=== PATIENT | female | born 1990 | race African-American/Black ===

== ENCOUNTER 2021-11-15 12:34 | Observation (INO) | payer OTHER, SELFPAY ==
--- NOTE | ~2021-11-15 | US_ITS ---
EXAMINATION: US OB limited DATE: 11/15/2021 14:43 INDICATION: Pelvic pressure. Third trimester. TECHNIQUE: Real-time transabdominal and transvaginal ultrasound of the pelvis was performed. COMPARISON: None. FINDINGS: There is a single fetus in vertex presentation. The placenta is fundal. heart rate is 159 beat s per minute (bpm). The amniotic fluid volume is subjectively normal. The cervical length is normal o n transvaginal images and measures 3.0 cm. IMPRESSION: 1. Single living fetus in vertex presentation. 2. Normal cervical length. Reviewed, dictated and finalized at location A. ZEL COOKER
[2021-11-15 12:50] VITALS: BP 110/73; PULSE 89; RESP 16; TEMP 37.3
--- NOTE | 2021-11-15 14:26 | OBADM ---
This patient, Keke Rivers, admitted to the OB room [facility] for observation. Patient/family oriented to hospital policies and general routines including ID bracelet, bed and alarms, visiting hours, pain management, procedures, bathroom and other care routines, personal items, smoking policy, room service/diet, and visiting hours. Patient/Family are encouraged to report perceived risks to care and to ask questions if they do not understand what they are told or what they should do.
[2021-11-15 14:28] VITALS: BMI 26.4
[2021-11-15 14:40] LABS: Add Urine Microscopic? YES; Appearance Urine Cloudy (Clear); Bacteria Urine Trace /hpf; Bilirubin Urine Negative (Negative); Blood Urine Negative (Negative); Color Urine Yellow (Yellow); Glucose Urine UA Negative (Negative); Ketones Urine 2+ mg/dL (Negative); Leukocyte Esterase Ur 3+ LEU/UL (NEGATIVE); Mucus Urine Few /lpf; Nitrate Urine Negative (Negative); Protein Urine Negative (Negative); Squamous Epithelial Cell Urine Many /hpf (Few); Urobilinogen Urine Negative mg/dL (<2.0)
[2021-11-15] MEDS: DEXTROSE 5%/0.9% SOD CHL 1,000 ML 999 ML IV CONT (16:04)
[2021-11-15 17:33] LABS: Influenza A QL RT-PCR Negative (Negative); Influenza B QL RT-PCR Negative (Negative); SARS-CoV-2 RNA PCR Positive
--- NOTE | 2021-11-17 07:41 | P.PNOB_ITS ---
OB - Triage/Final Diagnosis Visit Information Reason for evaluation: threatened labor and other (uti) Comments/Additional reasons for admission: I have assessed the risk for this patient, Keke Rivers, and determined that she would benefit from observation care. Evaluation Laboratory results: Laboratory Tests 11/15/21 11/15/21 14:08 14:13 Urine Color Yellow Urine Appearance Cloudy H Urine pH 6.0 Ur Specific [place] 1.020 Urine Protein Negative Urine Glucose (UA) Negative Urine Ketones 2+ H Ur Blood (Man) Negative Urine Nitrate Negative Urine Bilirubin Negative Urine Urobilinogen Negative Ur Leukocyte Esterase 3+ H Urine RBC 3-5 H Urine WBC 4-6 H Ur Squamous Epith Cells Many H Urine Bacteria Trace Urine Mucus Few H Influenza A (RT-PCR) Negative Influenza B (RT-PCR) Negative SARS-CoV-2 RNA (RT-PCR) Positive A
== END 2021-11-15 18:17 | disposition home or self-care (01) ==
PROVIDERS: Admitting Provider Obstetrics & Gynecology; Visit Provider Obstetrics & Gynecology
DX: O47.03 False labor before 37 completed weeks of gestation, third trimester (principal); O23.43 Unspecified infection of urinary tract in pregnancy, third trimester; N39.0 Urinary tract infection, site not specified; Z3A.30 30 weeks gestation of pregnancy; Z20.822 Contact with and (suspected) exposure to COVID-19
CPT/HCPCS: 76815; 81001; 87086; 87088; 87502; 96374; C9803; G0378; G0379; J0696; J7042; U0003; U0005

== ENCOUNTER 2021-12-17 14:47 | Inpatient (IN) | payer OTHER, SELFPAY ==
[2021-12-17] VITALS (19 sets, daily range): BP systolic 110–138; BP diastolic 56–88; PULSE 73–115; RESP 20; TEMP 36.8–37.7; BMI 26.6
--- NOTE | 2021-12-17 15:10 | OBADM ---
This patient, Keke Rivers, admitted to the OB room [facility] for observation. Patient/family oriented to hospital policies and general routines including ID bracelet, bed and alarms, visiting hours, pain management, procedures, bathroom and other care routines, personal items, smoking policy, room service/diet, and visiting hours. Patient/Family are encouraged to report perceived risks to care and to ask questions if they do not understand what they are told or what they should do.
[2021-12-17] MEDS: TERBUTALINE SULFATE 1 MG/ML VIAL 0.25 MG SUB-Q ×2 (15:22→16:35)
[2021-12-17] MEDS: BETAMETHASONE SOD PHOS/ACETATE 30 MG/5 ML VIAL 12 MG IM (15:25)
[2021-12-17 15:48] LABS: Add Urine Microscopic? NO; Appearance Urine Clear (Clear); Bilirubin Urine Negative (Negative); Blood Urine Negative (Negative); Color Urine Yellow (Yellow); Glucose Urine UA Negative (Negative); Ketones Urine Negative (Negative); Leukocyte Esterase Ur Negative LEU/UL (Negative); Nitrate Urine Negative (Negative); Protein Urine Negative (Negative); Specific Grav Ur 1.013 (1.001-1.035); Urobilinogen Urine Negative mg/dL (<2.0)
--- NOTE | 2021-12-17 17:40 | PM.IMHP ---
H&P: HPI History of Present Illness Date/Time: 12/17/21 17:40 Chief Complaint: labor Narrative: 31 yo at 35w3d who presents with contractions. Pt states she has been having contractions for the past two days. pt states that this morning her contractions started getting more intense and more frequent. Pt has a history of spontaneous deliveries in all her previous pregnancies. She states she was on progesterone earlier in this but recently stopped. Pt was a late transfer of care to our practice. She endorses good movement. She denies any vaginal bleeding or leakage of fluid. Review of Systems Cardiovascular: Cardiovascular: Denies chest pain, Denies leg edema, Denies palpitations, Denies dyspnea and Denies dyspnea on exertion Respiratory: Respiratory: Denies cough, Denies dyspnea and Denies dyspnea on exertion Gastrointestinal: Gastrointestinal: Denies abdominal pain, Denies constipation, Denies diarrhea, Denies nausea and Denies vomiting Genitourinary: Genitourinary: Denies hematuria, Denies urinary frequency, Denies dysuria, Denies pelvic pain, Denies urinary incontinence and Denies vaginal discharge Neurologic: Reports system reviewed and no additional complaints, except as documented Psychiatric: Psychiatric: Reports no additional psychiatric complaints Endocrine: Endocrine: Denies palpitations Meds Home Medications and Allergies Home Medications Medication Instructions Recorded Confirmed Type PNV no.[id number] 2 tablet PO DAILY 12/17/21 12/17/21 History [ Gummies] Allergies Allergy/AdvReac Type Severity Reaction Status Date / Time No Known Allergies Allergy Verified 02/19/16 17:40 Vital Signs Vital Signs - 24 hr 12/17/21 15:00 12/17/21 15:16 12/17/21 15:21 Temperature 37.7 C H Pulse Rate 76 73 Blood Pressure 132/84 138/88 12/17/21 15:31 12/17/21 15:45 12/17/21 16:00 Temperature 37.6 C Pulse Rate 94 102 H 103 H Blood Pressure 118/65 110/64 116/56 L 12/17/21 16:31 12/17/21 16:33 12/17/21 17:00 Temperature Pulse Rate 102 H 102 H 107 H Blood Pressure 123/74 123/74 129/73 12/17/21 17:22 Temperature Pulse Rate 115 H Blood Pressure 137/77 Exam Const: General: no acute distress Eyes: EOM: EOMs intact bilaterally Neck: Neck: supple Thyroid: thyroid normal Chest: Breast/axilla inspection: normal inspection of the breasts Breast/axilla palpation: normal palpation of the breasts, normal palpation of the axillae and no axillary lymphadenopathy Resp: Effort & Inspection: normal respiratory effort Auscultation: clear to auscultation bilaterally Cardio: Rate: regular rate Rhythm: regular rhythm GI: Inspection: non-distended GI Palp: Yes Soft to palpation, No Tenderness to palpation present (GI) and No Guarding due to palpation present (GI) Auscultation: normal bowel sounds : General: No bladder normal to palpation External Female Exam: normal external appearance OB/external & speculum: No vaginal bleeding Manual OB Exam: dilated 3 cm, effaced 50% and station -2 Skin: General skin exam: normal color and no rashes or lesions noted Neuro: Cognition (Neuro): normal cognition Speech: normal speech Extrem: General: normal to inspection and no edema Psych: Mental Status: mental status grossly normal Affect: normal affect H&P: Results Labs Labs: Urine 12/17/21 Range/Units 15:35 Urine Color Yellow (Yellow) Urine Appearance Clear (Clear) Urine pH 6.0 (5.0-9.0) Ur Specific [place] 1.013 (1.001-1.035) Urine Protein Negative (Negative) mg/dL Urine Glucose (UA) Negative (Negative) mg/dL Assessment and Plan Assessment and plan (1) Supervision of high risk , unspecified, third trimester: Code(s): O09.93 - Supervision of high risk , unspecified, third trimester Status: Acute Assessment and Plan: 31 yo at 35w3d late tra
[2021-12-17] MEDS: NIFEdipine 10 MG CAPSULE PO (18:24)
[2021-12-17 22:17] LABS: Hematocrit 29.5 % (37.0-47.0); Hemoglobin 9.6 g/dL (12.0-15.0); Mean Corpuscular HGB Conc 32.5 g/dl (32-36); Mean Corpuscular Hemoglobin 28.7 pg (26-34); Mean Corpuscular Volume 88.3 fl (80-100); Mean Platelet Volume 10.3 fl (7.4-10.4); Platelet Count Result 235 k/mm3 (150-375); Red Blood Count 3.34 M/mm3 (4.2-5.4); Red Cell Distribution Width 13.7 % (11.5-14.5); White Blood Count 9.7 K/mm3 (4.5-10.0)
[2021-12-17] MEDS: LACTATED RINGERS 1,000 ML 125 ML IV CONT (23:56)
[2021-12-17] MEDS: AMPICILLIN 2 GM/NS 100 ML 2 GM/100 ML BAG IVPB (23:57)
[2021-12-18] VITALS (17 sets, daily range): BP systolic 105–134; BP diastolic 61–84; PULSE 65–132; RESP 18–20; TEMP 36.7–37.5
--- NOTE | 2021-12-18 00:30 | LDADM ---
This patient, Keke Rivers, was admitted to Labor/Delivery/Recovery 104 on 12/17/21 at 23:50. Plans for labor, pain management and were discussed with patient. Patient/family oriented to hospital policies and general routines including ID bracelet, bed and alarms, visiting hours, pain management, procedures, bathroom and other care routines, personal items, smoking policy, room service/diet and guest tray routines, security routines, and visiting hours. Patient/Family are encouraged to report perceived risks to care and to ask questions if they do not understand what they are told or what they should do. See OBIX for further documentation.
[2021-12-18 01:11] LABS: HIV 1/2 Ab P24 Ag Result Negative (Negative)
[2021-12-18] MEDS: BETAMETHASONE SOD PHOS/ACETATE 30 MG/5 ML VIAL 12 MG IM (02:59)
--- NOTE | 2021-12-18 10:41 | PM.DS ---
DS: Admitting Diagnosis Discharge Date 12/18/21 Admitting Diagnosis labor DS: Summary Hospital Course Hospital Course: 31 yo at 35w4d who presented in labor. Pt was found to be 4cm. She was having painful contraction on tocometer. Pt received BTMS and 2 doses of terbutaline and 1 dose of procardia. Pt was observed overnight. She continued to have occasional contractions. Her cervix remained unchanged. Discussed plan of care with patient. Pt was agreeable to d/c home with procardia. pt was advised to return to the hospital if contractions continue. Status at Discharge Functional status at discharge: independent ambulation Overall status at discharge: patient is back to baseline Time Spent with Patient Time attestation: Total time spent providing and/or coordinating discharge services: Time spent: Less than 30 minutes DS: Data Data Completed and Pending Labs on day of discharge: Labs from last 24 hours 12/17/21 12/17/21 12/17/21 22:08 22:07 22:04 WBC 9.7 RBC 3.34 L Hgb 9.6 L Hct 29.5 L MCV 88.3 MCH 28.7 MCHC 32.5 RDW 13.7 Plt Count 235 MPV 10.3 Urine Color Urine Appearance Urine pH Ur Specific [place] Urine Protein Urine Glucose (UA) Urine Ketones Ur Blood (Man) Urine Nitrate Urine Bilirubin Urine Urobilinogen Leukocyte Esterase Rfl HIV 1&2 Ab/P24 Ag 4thGn Negative Blood Type B Positive Antibody Screen Negative 12/17/21 15:35 WBC RBC Hgb Hct MCV MCH MCHC RDW Plt Count MPV Urine Color Yellow Urine Appearance Clear Urine pH 6.0 Ur Specific [place] 1.013 Urine Protein Negative Urine Glucose (UA) Negative Urine Ketones Negative Ur Blood (Man) Negative Urine Nitrate Negative Urine Bilirubin Negative Urine Urobilinogen Negative Leukocyte Esterase Rfl Negative HIV 1&2 Ab/P24 Ag 4thGn Blood Type Antibody Screen Discharge Plan Discharge Discharging Clinician: Chris Lucio Patient Disposition: Home, Self-Care Activity: as tolerated and pelvic rest Diet: regular Patient Instructions: Antibiotic Form, Labor (DC) Stand Alone Forms: General Discharge Information Follow-up/Referrals: Chris Lucio MD [Physician] - Discharge Medications: New nifedipine 10 mg capsule 10 mg PO Q6H Qty: 30 RF: 0 Continued Gummies 400 mcg-35 mg- 25 mg-5 mg Tablet,Chewable 2 tablet PO DAILY RF: 0 albuterol sulfate 2.5 mg /3 mL (0.083 %) solution for nebulization See Rx Instructions .ROUTE .COMPLEX RF: 0 albuterol sulfate 90 mcg/actuation HFA aerosol inhaler See Rx Instructions .ROUTE .COMPLEX RF: 0 Date of admission: 12/17/21 23:50 Primary Care Provider: PHYSICIAN,EXTRUSION DIE COORDINATOR Admitting Provider: Fransisco Tan Attending physician on admission: Fransisco Tan Condition: Stable
[2021-12-18] MEDS: NIFEdipine 10 MG CAPSULE PO (11:01)
== END 2021-12-18 15:03 | disposition home or self-care (01) | DRG 563 ==
LOC: ANHOBPP 15:14 → ANHLDR 12-18 10:44
PROVIDERS: Admitting Provider Student in an Organized Health Care Education/Training Program; Visit Provider Student in an Organized Health Care Education/Training Program
DX: O60.03 Preterm labor without delivery, third trimester (principal); Z3A.35 35 weeks gestation of pregnancy
CPT/HCPCS: 36415; 81003; 85027; 86703; 86850; 86900; 86901; A9270; G0432; J0290; J0702; J3105; J7120